=== PATIENT | male | born 1990 | race Caucasian/White ===

== ENCOUNTER 2017-07-27 22:47 | Emergency (ER) | payer BC ==
--- NOTE | 2017-07-27 22:51 | EDM.PDOC ---
ED HPI GENERAL MEDICAL PROBLEM - General Chief Complaint: ENT Problem Stated Complaint: tooth pain Time Seen by Provider: 07/27/17 22:51 Source of Information: Reports: Patient History Limitations: Reports: No Limitations - History of Present Illness INITIAL COMMENTS - FREE TEXT/NARRATIVE: 26-year-old male presents the ED with dental pain primarily left upper third he states he has about 6 really bad teeth. Multiple dental caries and fractured teeth or from bad decay for the last 6 years with intermittent dental infections. He states pain is currently on the left side and mostly involving his maxilla rating up into words his maxillary sinus. However he states that there is significant pain in the lower bicuspids as well which are badly deteriorated. This is his fourth day of severe pain. Has been taking Motrin and Tylenol without much relief. Has not slept for 2 days. States he is on a list to get into the dentist for the last 2 weeks but has been unable to get in. Onset: Gradual Onset Date: 07/24/17 Duration: Day(s): (4 days.) Location: Reports: Face (Dental pain involving left lower and upper) Quality: Reports: Ache ( teeth.), Pressure, Throbbing Severity: Severe Improves with: Reports: None Worsens with: Reports: None (Currently pain is 9 out of 10) Context: Reports: Other (Multiple teeth in very bad shape with decay and fracture.). 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 Can stand the pain any further. Motrin) Right Upper Throat Pain Score (Numeric/FACES): 10 - Related Data Allergies Allergy/AdvReac Type Severity Reaction Status Date / Time No Known Allergies Allergy Verified 07/27/17 22:56 Home Meds: Home Meds Amoxicillin/Clavulanate K [Augmentin 875-125 MG] 1 tab PO BID #20 tablet [Rx] oxyCODONE HCl/Acetaminophen [Percocet 5-325 mg Tablet] 1 - 2 each PO Q4H PRN # 20 tablet 07/27/17 [Rx] Past Medical History HEENT History: Reports: Other (See Below) (Dental pain and dental infections in the past) ED ROS ENT - Review of Systems Review Of Systems: See Below Constitutional: Reports: Fatigue, Decreased Appetite (Can hardly eat due to pain in his teeth.). Denies: Fever, Chills, Malaise, Weakness, Weight Loss ( From not sleeping) HEENT: Reports: Dental Pain (Severe pain primarily left upper canine and bicuspids as well as lower bicuspids and second molar.) Respiratory: Reports: No Symptoms Cardiovascular: Reports: No Symptoms Endocrine: Reports: No Symptoms GI/Abdominal: Reports: No Symptoms : Reports: No Symptoms Musculoskeletal: Reports: No Symptoms Skin: Reports: No Symptoms Neurological: Reports: No Symptoms Psychiatric: Reports: No Symptoms Hematologic/Lymphatic: Reports: No Symptoms Immunologic: Reports: No Symptoms ED EXAM, ENT - Physical Exam Exam: See Below Exam Limited By: No Limitations General Appearance: Alert, Moderate Distress (He is in significant discomfort.) Eye Exam: Bilateral Eye: Normal Inspection, PERRL Ears: Normal TMs Mouth/Throat: Dental Abcess (I believe most of his pain at present is coming from the left upper canine and first bicuspid tooth which are severely decayed and fractured. He has multiple teeth on the lower maxilla including the second molar that is badly decayed with like both bicuspids in bad shape as well. However there is no gingiva swelling in this area.) Head: No: Facial Swelling Neck: Normal Inspection, Supple, Non-Tender. No: Full Range of Motion, Lymphadenopathy (R) Respiratory/Chest: No Respiratory Distress, Lungs Clear, Normal Breath Sounds, No Accessory Muscle Use Cardiovascular: Normal Peripheral Pulses, Regular Rate, Rhythm, No Edema, No Gallop, No Murmur, No Rub GI/Abdominal: Normal Bowel Sounds, Soft, Non-Tender, No Organomegaly Extremities: Normal Inspection, Normal Range of Motion, Non-Tender, No Pedal Edema Course - Vital Signs Last Recorded V/S: Last Vital Signs Temp 36.9 C 07/27/17 22:53 Pulse 83 07/27/17 22:53 Resp 20 07/27/17 22:53 BP 182/107 H 07/27/17 22:53 Pulse Ox 98 07/27/17 22:53 - Orders/Labs/Meds Meds: Medications Discontinued Medications Generic Name Dose Route Start Last Admin Trade Name Freq PRN Reason Stop Dose Admin Amoxicillin/Clavulanate Potassium 1 tab 07/28/17 23:11 Augmentin 500 Mg\125 Mg PO 07/28/17 23:12 ONETIME ONE Amoxicillin/Clavulanate Potassium 1 tab 07/27/17 23:15 07/27/17 23:19 Augmentin 500 Mg\125 Mg PO 07/27/17 23:16 1 tab ONETIME ONE Administration Oxycodone/Acetaminophen 2 tab 07/27/17 23:11 07/27/17 23:19 Percocet 325-5 Mg PO 07/27/17 23:12 2 tab ONETIME ONE Administration - Radiology Interpretation Free Text/Narrative:: 26-year-old male presents to the ED with severe dental pain primarily coming from the left upper canine and first bicuspid tooth which are badly decayed. There is surrounding gingiva swelling but no obvious abscess that would benefit from drainage. Plan placed on Augmentin 500 mg by mouth to the ED now 2 Percocet tablets and Motrin 600 mg by mouth. He will fill his meds through the [facility] machine for Percocet 5/325 milligrams tabs 20 and Augmentin 875 mg twice a day for 10 days. Plan is to hopefully get into the dentist within the next week to have these teeth removed. They are no longer salvageable Departure - Departure Time of Disposition: 23:27 Disposition: Home, Self-Care 01 Condition: Fair Clinical Impression: Dental abscess - Discharge Information Prescriptions: Amoxicillin/Clavulanate K [Augmentin 875-125 MG] 1 tab PO BID #20 tablet oxyCODONE HCl/Acetaminophen [Percocet 5-325 mg Tablet] 1 - 2 each PO Q4H PRN # 20 tablet PRN Reason: pain relief. Instructions: Dental Abscess, [id number] Referrals: PCP,None [Primary Care Provider] - Forms: ED Department Discharge, ED Return to Work/School Form Additional Instructions: Evaluation the emergency room tonight in regards to severe dental pain which could be coming from multiple teeth. I suspect however that is coming from valley decayed upper bicuspid tooth. There are also several bad teeth in the left lower mandible do not show any active signs of infection. Treatment is continue Motrin 600 mg every 6 hours to relieve pain and inflammation or alternatively Aleve 2 tablets every 8 hours in a similar fashion. Percocet tabs 5/3/25 one or 2 every 4 hours as needed for pain relief. Antibiotic is to be Augmentin with initial dose provided through the ED tonight. The [facility] machine will dispense Augmentin 875 mg tablets with better to be taken twice daily for the next 10 days to clear up dental infection. As discussed the tooth needs to be removed as this would cure the problem. Follow-up with dentist when able.
[2017-07-27] MEDS ORDERED: Acetaminophen/oxyCODONE 325-5 MG Tab PO ONE (23:11)
[2017-07-27] MEDS ORDERED: Amoxicillin/Clavulanate K 500-125 MG Tab PO ONE (23:15)
[2017-07-28] MEDS ORDERED: Amoxicillin/Clavulanate K 500-125 MG Tab PO ONE (23:11)
== END 2017-07-27 23:35 | disposition home or self-care (01) ==
LOC: JD.ED 22:47
DX: K04.7 Periapical abscess without sinus (principal)
CPT/HCPCS: 99283; A9270

== ENCOUNTER 2019-05-27 13:54 | Emergency (ER) | payer BC ==
[2019-05-27] MEDS ORDERED: Dexamethasone 10 MG/ML SDV IM ONE (14:52)
--- NOTE | 2019-05-27 14:58 | EDM.PDOC ---
ED HPI GENERAL MEDICAL PROBLEM - General Chief Complaint: Respiratory Problem Stated Complaint: SOB POST TONSIL SURGERY Time Seen by Provider: 05/27/19 14:22 Source of Information: Reports: Patient, RN Notes Reviewed History Limitations: Reports: No Limitations - History of Present Illness INITIAL COMMENTS - FREE TEXT/NARRATIVE: Patient is a 28-year-old male who presents to the ED for the evaluation of shortness of breath s/p tonsillectomy this morning. Patient was in [place] this morning and had his tonsils removed by Dr. Dockery at around 8:30 AM. He states that the surgery went fine, but now he feels as if something is in the back of my throat, like when I talk louder or faster. He notes that this seems to be bothersome type feeling in the back of his throat, he is not really complaining of any pain or any shortness of breath, he appears to be having no respiratory difficulty at this time. He states that this just seems as if it is blocking his airway. Patient is still able to drink fluids, and he has been able to drink about 3 or 4 bottles of water since his surgery. He did call his surgeon see the back of his throat, that is hard for him to evaluate him over the phone. To make him aware of what was going on, but the surgeon states that since he cannot see his throat, that it would be hard for him to evaluate him over the phone. - Related Data Allergies Allergy/AdvReac Type Severity Reaction Status Date / Time No Known Allergies Allergy Verified 02/03/18 15:07 Home Meds: Home Meds Hydrocodone/Acetaminophen [Hydrocodon-Acetamin 7.5-325/15] 15 ml PO Q4HR PRN [History] Past Medical History - Past Health History Medical/Surgical History: Denies Medical/Surgical History HEENT History: Reports: Other (See Below) Other HEENT History: dental issues Social & Family History - Family History Family Medical History: Noncontributory - Caffeine Use Caffeine Use: Reports: Coffee, Tea - Recreational Drug Use Recreational Drug Use: No ED ROS GENERAL - Review of Systems Review Of Systems: See Below Constitutional: Denies: Fever, Chills HEENT: Reports: Throat Swelling (feels as if his uvula is swollen) Respiratory: Denies: Shortness of Breath, Wheezing, Cough Cardiovascular: Denies: Chest Pain GI/Abdominal: Denies: Diarrhea, Nausea, Vomiting ED EXAM, GENERAL - Physical Exam Exam: See Below Exam Limited By: No Limitations General Appearance: Alert, WD/WN, No Apparent Distress Throat/Mouth: Normal Inspection, Normal Lips, Normal Teeth, Normal Gums, No Airway Compromise, Other (grossly swollen uvula). No: Normal Oropharynx (pt has cautery mai in back of throat, the area is erythematous and slightly edematous, the pt's uvula is swollen about 1x it's normal size.), Perioral Cyanosis Head: Atraumatic, Normocephalic Neck: Normal Inspection, Supple, Non-Tender, Full Range of Motion Respiratory/Chest: No Respiratory Distress, Lungs Clear, Normal Breath Sounds, No Accessory Muscle Use, Chest Non-Tender Cardiovascular: Normal Peripheral Pulses, Regular Rate, Rhythm, No Murmur Extremities: Normal Inspection, Normal Capillary Refill Neurological: Alert, Oriented, Normal Cognition, No Motor/Sensory Deficits Psychiatric: Normal Affect, Normal Mood Skin Exam: Warm, Dry, Intact, Normal Color, No Rash Course - Vital Signs Last Recorded V/S: Last Vital Signs Temp 97.7 F 05/27/19 14:07 Pulse 76 05/27/19 14:07 Resp 18 05/27/19 14:07 BP 137/91 H 05/27/19 14:07 Pulse Ox 97 05/27/19 14:07 - Orders/Labs/Meds Meds: Medications Discontinued Medications Generic Name Dose Route Start Last Admin Trade Name Jazmine PRN Reason Stop Dose Admin Dexamethasone 10 mg 05/27/19 14:52 Dexamethasone IM 05/27/19 14:53 ONETIME ONE - Re-Assessments/Exams Free Text/Narrative Re-Assessment/Exam: 05/27/19 15:05 Patient is a 28-year-old male who presents to the ED for problems status post his tonsillectomy this morning. Patient's uvula is quite edematous, I would say it is small and at least 1-2 times is normal size, and I do believe this is what is causing him his sensation of not being able to talk fast or having something in the back of his throat. I will provide him with 10 mg of dexamethasone for inflammation management, have him try to chew on some ice chips to reduce swelling, and also have him use ice packs to his throat as well to see if this does not bring some swelling relief as well. Patient verbalized understanding, I also suggested that he sleep upright for the next day or 2 in the recliner. He also was understanding of this. Departure - Departure Time of Disposition: 15:07 Disposition: Home, Self-Care 01 Condition: Fair Clinical Impression: Uvular swelling - Discharge Information *PRESCRIPTION DRUG MONITORING PROGRAM REVIEWED*: No *COPY OF PRESCRIPTION DRUG MONITORING REPORT IN PATIENT DELFINO: No Referrals: Deana Tenorio MD [Primary Care Provider] - Forms: ED Department Discharge Additional Instructions: You were evaluated in the ER today regarding the feelings of something being swollen in the back your throat. Your uvula was swollen at today's visit, you were given a 10 mg injection of dexamethasone for inflammation relief, as you are not able to take ibuprofen at this time. Recommend you try to suck on some ice chips over the next few hours, and also use ice packs to your throat area to help relieve some of the swelling as well. Please try to follow all previous discharge instructions set forth by your ENT, and do not get behind on your pain medications please take them as prescribed. Recommend that you follow-up with your ENT if you develop any new or worsening symptoms, however we are glad to evaluate you in the ER at any time for worsening symptoms as well. Sepsis Event Note - Evaluation Sepsis Screening Result: No Definite Risk - Focused Exam Vital Signs: Vital Signs Temp Pulse Resp BP Pulse Ox 05/27/19 14:07 97.7 F 76 18 137/91 H 97 Date Exam was Performed: 05/27/19 Time Exam was Performed: 15:07
== END 2019-05-27 15:50 | disposition home or self-care (01) ==
LOC: JD.ED 13:54
DX: K13.79 Other lesions of oral mucosa (principal); Z90.89 Acquired absence of other organs
CPT/HCPCS: 96372; 99284; J1100

== ENCOUNTER 2019-06-01 12:43 | Emergency (ER) | payer BC ==
--- NOTE | 2019-06-01 14:00 | CR ---
Chest: Two views of the chest were obtained. Comparison: Previous chest x-ray of 02/03/18. Heart size and mediastinum are within normal limits. Lungs are clear with no acute parenchymal change. Bony structures appear within normal limits. Impression: 1. Nothing acute is appreciated on two-view chest x-ray. Diagnostic code #1 This report was dictated in [place] Standard Time
--- NOTE | 2019-06-01 14:40 | EDM.PDOC ---
ED HPI GENERAL MEDICAL PROBLEM - General Chief Complaint: Chest Pain Stated Complaint: CHEST PAIN/POST TONSILLECTOMY 05/27 Time Seen by Provider: 06/01/19 12:54 Source of Information: Reports: Patient History Limitations: Reports: No Limitations - History of Present Illness INITIAL COMMENTS - FREE TEXT/NARRATIVE: The patient presents with chest pain. This started just prior to arrival and it went away when he got here. He has some shortness of breath with it. He says this has been a problem for a few months but today was the worst one. He was not doing anything to strenuous when it started. He has no fever, chills, cough, congestion, abdominal pain, nausea or vomiting. He has seen his provider for this. He had a holter monitor and an EKG. Onset: Gradual Duration: Day(s): Location: Reports: Chest Quality: Reports: Sharp Severity: Moderate Improves with: Reports: None Worsens with: Reports: None Associated Symptoms: Reports: Chest Pain. Denies: Cough, Fever/Chills, Headaches, Nausea/Vomiting, Shortness of Breath - Related Data Allergies Allergy/AdvReac Type Severity Reaction Status Date / Time No Known Allergies Allergy Verified 06/01/19 12:53 Home Meds: Home Meds oxyCODONE 15 mg PO BID 06/01/19 [History] Past Medical History - Past Health History Medical/Surgical History: Denies Medical/Surgical History HEENT History: Reports: Other (See Below) Other HEENT History: dental issues Cardiovascular History: Reports: Angina, High Cholesterol - Past Surgical History HEENT Surgical History: Reports: Oral Surgery, Tonsillectomy Social & Family History - Family History Family Medical History: Noncontributory - Tobacco Use Smoking Status *Q: Never Smoker Second Hand Smoke Exposure: No - Caffeine Use Caffeine Use: Reports: Coffee - Recreational Drug Use Recreational Drug Use: No ED ROS GENERAL - Review of Systems Review Of Systems: See Below Constitutional: Reports: No Symptoms HEENT: Reports: No Symptoms Respiratory: Reports: Shortness of Breath Cardiovascular: Reports: Chest Pain Endocrine: Reports: No Symptoms GI/Abdominal: Reports: No Symptoms ED EXAM, GENERAL - Physical Exam Exam: See Below Exam Limited By: No Limitations General Appearance: Alert, No Apparent Distress Ears: Normal External Exam Nose: Normal Inspection Head: Atraumatic, Normocephalic Neck: Normal Inspection Respiratory/Chest: No Respiratory Distress, Lungs Clear, Normal Breath Sounds Cardiovascular: Regular Rate, Rhythm, No Edema, No Murmur GI/Abdominal: Soft, Non-Tender, No Organomegaly, No Mass Back Exam: Normal Inspection Extremities: Normal Inspection Neurological: Alert, Oriented, No Motor/Sensory Deficits EKG INTERPRETATION EKG Date: 06/01/19 Time: 13:06 Rhythm: NSR Rate (Beats/Min): 84 [place]: Normal P-Wave: Present QRS: Normal ST-T: Normal QT: Normal Course - Vital Signs Last Recorded V/S: Last Vital Signs Temp 98.7 F 06/01/19 12:50 Pulse 78 06/01/19 15:32 Resp 20 06/01/19 12:50 BP 140/73 06/01/19 15:32 Pulse Ox 100 06/01/19 15:32 - Orders/Labs/Meds Orders: Active Orders 24 hr Category Date Time Status Cardiac Monitoring [RC] . DIRECTED Care 06/01/19 13:30 Active EKG 12 Lead [EKG Documentation Completion] [RC] URGENT Care 06/01/19 13:02 Active Labs: Laboratory Tests 06/01/19 06/01/19 06/01/19 Range/Units 13:45 13:45 13:45 WBC 9.77 H (4.23-9.07) K/mm3 RBC 5.86 (4.63-6.08) M/mm3 Hgb 16.2 (13.7-17.5) gm/dl Hct 47.5 (40.1-51.0) % MCV 81.1 (79.0-92.2) fl MCH 27.6 (25.7-32.2) pg MCHC 34.1 (32.2-35.5) g/dl RDW Std Deviation 39.3 (35.1-43.9) fL Plt Count 418 H (163-337) K/mm3 MPV 9.4 (9.4-12.3) fl Neut % (Auto) 68.1 H (34.0-67.9) % Lymph % (Auto) 24.0 (21.8-53.1) % Wetzel % (Auto) 5.8 (5.3-12.2) % Eos % (Auto) 1.5 (0.8-7.0) Baso % (Auto) 0.3 (0.1-1.2) % Neut # (Auto) 6.65 H (1.78-5.38) K/mm3 Lymph # (Auto) 2.34 (1.32-3.57) K/mm3 [place]zel # (Auto) 0.57 (0.30-0.82) K/mm3 Eos # (Auto) 0.15 (0.04-0.54) K/mm3 Baso # (Auto) 0.03 (0.01-0.08) K/mm3 D-Dimer, Quantitative 0.30 (0.19-0.50) mg/L Sodium 137 (136-145) mEq/L Potassium 4.1 (3.5-5.1) mEq/L Chloride 99 (98-107) mEq/L Carbon Dioxide 29 (21-32) mEq/L Anion Gap 13.1 (5-15) BUN 8 (7-18) mg/dL Creatinine 0.9 (0.7-1.3) mg/dL Est Cr Clr Drug Dosing 122.20 mL/min Estimated GFR (MDRD) > 60 (>60) mL/min BUN/Creatinine Ratio 8.9 L (14-18) Glucose 101 (74-106) mg/dL Calcium 9.5 (8.5-10.1) mg/dL Total Bilirubin 0.5 (0.2-1.0) mg/dL AST 42 H (15-37) U/L ALT 119 H (16-63) U/L Alkaline Phosphatase 98 (46-116) U/L Troponin I < 0.017 (0.00-0.056) ng/mL Total Protein 8.7 H (6.4-8.2) g/dl Albumin 4.1 (3.4-5.0) g/dl Globulin 4.6 gm/dL Albumin/Globulin Ratio 0.9 L (1-2) - Re-Assessments/Exams Free Text/Narrative Re-Assessment/Exam: 06/01/19 14:41 I ordered an EKG, CXR and labs. His WBC was 9.77. His AST was elevated at 42. His ALT was 119. His troponin is negative. His D-dimer was negative. I am not sure what is causing his pain. He does have to give a stool sample to his provider. She is checking for H-pylori. He will need to follow up with his doctor. Departure - Departure Time of Disposition: 14:50 Disposition: Home, Self-Care 01 Condition: Good Clinical Impression: Atypical chest pain Instructions: Nonspecific Chest Pain, [id number] Referrals: Deana Tenorio MD [Primary Care Provider] - 1 Week Forms: ED Department Discharge Additional Instructions: Take tylenol or motrin for pain. Follow up with your doctor. Please return if you are worse. Sepsis Event Note - Evaluation Sepsis Screening Result: No Definite Risk - Focused Exam Vital Signs: Vital Signs Temp Pulse Resp BP Pulse Ox 06/01/19 15:32 78 140/73 100 06/01/19 12:50 98.7 F 92 20 136/89 97 Date Exam was Performed: 06/01/19 Time Exam was Performed: 16:14 - My Orders Last 24 Hours: My Active Orders 06/01/19 13:02 EKG 12 Lead [EKG Documentation Completion] [RC] URGENT 06/01/19 13:30 Cardiac Monitoring [RC] . DIRECTED - Assessment/Plan Last 24 Hours: My Active Orders 06/01/19 13:02 EKG 12 Lead [EKG Documentation Completion] [RC] URGENT 06/01/19 13:30 Cardiac Monitoring [RC] . DIRECTED
== END 2019-06-01 15:33 | disposition home or self-care (01) ==
LOC: JD.ED 12:43
DX: R07.89 Other chest pain (principal)
CPT/HCPCS: 36415; 71046; 71046-26; 80053; 84484; 85025; 85379; 93005; 93010; 99283; 99285-25

== ENCOUNTER 2019-06-09 01:11 | Emergency (ER) | payer BC ==
--- NOTE | 2019-06-09 01:36 | EDM.PDOC ---
ED HPI GENERAL MEDICAL PROBLEM - General Chief Complaint: ENT Problem Stated Complaint: BLEEDING IN THROAT Time Seen by Provider: 06/09/19 01:22 Source of Information: Reports: Patient, Family History Limitations: Reports: No Limitations - History of Present Illness INITIAL COMMENTS - FREE TEXT/NARRATIVE: 28-year-old male presents to the ED with aggressive bleeding per ora. History suggests that he had a tonsillectomy 11 days ago. He woke up from sleep feeling like he had heartburn and then recognized that with water intake it tasted like blood. Producing a fair amount of blood per ora that he was spitting up. He awoke from sleep around 00 30 hours tonight. Feeling much better over the last 36 hours. He did have some minor bleeding after the surgery I believe . She tried ice water at home but he could not get the bleeding to stop. At the time of my examination bleeding appears to have come under control. Onset: Today Onset Date: 06/09/19 Onset Time: 00:30 Duration: Minutes: Location: Reports: Other (Bleeding per ora from left tonsillar fossa) Quality: Reports: Other Severity: Moderate (Active bleeding) Improves with: Reports: None Worsens with: Reports: None Context: Reports: Other (Patient had tonsillectomy 11 days ago. Awoke with spontaneous bleeding.). Denies: Activity, Exercise, Lifting, Sick Contact, Trauma Associated Symptoms: Reports: No Other Symptoms Treatments [employer]: Reports: Other (see below) (None.) - Related Data Allergies Allergy/AdvReac Type Severity Reaction Status Date / Time No Known Allergies Allergy Verified 06/09/19 01:25 Home Meds: Home Meds . [No Known Home Meds] 06/09/19 [History] Past Medical History - Past Health History Medical/Surgical History: Denies Medical/Surgical History HEENT History: Reports: Other (See Below) Other HEENT History: dental issues Cardiovascular History: Reports: Angina, High Cholesterol - Past Surgical History HEENT Surgical History: Reports: Oral Surgery, Tonsillectomy Social & Family History - Family History Family Medical History: Noncontributory - Caffeine Use Caffeine Use: Reports: Coffee - Living Situation & Occupation Living situation: Reports: Occupation: Employed ED ROS ENT - Review of Systems Review Of Systems: See Below Constitutional: Reports: Malaise, Fatigue, Decreased Appetite (Only getting better.). Denies: Fever, Chills HEENT: Reports: Other. Denies: Ear Pain Respiratory: Reports: No Symptoms (Blood per ora from left tonsillar fossa wearing a tonsillectomy carried out 11 days ago) Cardiovascular: Reports: No Symptoms Endocrine: Reports: No Symptoms GI/Abdominal: Reports: No Symptoms : Reports: No Symptoms Musculoskeletal: Reports: No Symptoms Skin: Reports: No Symptoms Neurological: Reports: No Symptoms Psychiatric: Reports: No Symptoms Hematologic/Lymphatic: Reports: No Symptoms Immunologic: Reports: No Symptoms ED EXAM, ENT - Physical Exam Exam: See Below Exam Limited By: Uncooperative General Appearance: WD/WN, Anxious, Mild Distress (Mildly anxious) Eye Exam: Bilateral Eye: Normal Inspection, PERRL Mouth/Throat: Other (The right tonsillar fossa is normal and is healing well. There is a large clot in the left tonsillar fossa with no active bleeding at this time.) Head: Atraumatic, Normocephalic Neck: Normal Inspection, Supple, Non-Tender, Full Range of Motion. No: Lymphadenopathy (L), Lymphadenopathy (R) Respiratory/Chest: No Respiratory Distress, Lungs Clear (No evidence of aspiration.), Normal Breath Sounds, No Accessory Muscle Use Cardiovascular: Normal Peripheral Pulses, Regular Rate, Rhythm, No Edema, No Murmur, No Rub, Other (Her pressure is mildly elevated at 127/98.) Neurological: Alert, Oriented, CN II-XII Intact, Normal Cognition, Normal Gait Psychiatric: Normal Affect, Anxious Skin: Warm (Mildly anxious.), Dry, Intact, Normal Color, No Rash ED PROCEDURAL SEDATION - Pre Procedure Indications: other (Post tonsillectomy hemorrhage) Preparations: procedure explained, consent signed, RT in room, oxygen, continuous pulse oximeter, suction, continuous telemetry monitor, constant attendance - Physical Exam Airway: normal anatomy Cardiovascular: normal heart sounds Respiratory: normal breath sounds Neurological: alert, responsive, NAD Meilampati Classification: 2 (Tonsillar pillars and uvula hidden by base of tongue) - Procedure Sedation Sedation: versed (parenteral) (4 mg), fentanyl (50 g) ASA Classification: 1 (Normal healthy patient) - Intra Procedure Condition during procedure: moderately sedated, handled secretions adequately, other (Required oxygen support by nasal prongs) Complications: none Reversal: none - Post Procedure Condition after procedure: alert, NAD, responds to verbal stimuli - Discharge Condition Patient returned to pre-procedure baseline: Yes Alert prior to discharge: Yes Ambulatory with assistance: Yes Vital signs normal: Yes Time spent with sedated patient: 30 min Course - Vital Signs Last Recorded V/S: Last Vital Signs Temp 36.7 C 06/09/19 01:19 Pulse 85 06/09/19 01:19 Resp 19 06/09/19 01:19 BP 127/98 H 06/09/19 01:19 Pulse Ox 96 06/09/19 01:19 - Orders/Labs/Meds Orders: Active Orders 24 hr Category Date Time Status Sodium Chloride 0.9% [Normal Saline] 1,000 ml Med 06/09/19 02:30 Active IV ASDIRECTED Medication Orders Sodium Chloride (Normal Saline) 1,000 mls @ 125 mls/hr IV ASDIRECTED YOGESH Last Admin: 06/09/19 02:47 Dose: 125 mls/hr Labs: Laboratory Tests 06/09/19 06/09/19 Range/Units 02:20 02:20 Hgb 15.2 (13.7-17.5) gm/dl Hct 44.2 (40.1-51.0) % PT 10.8 (9.7-12.0) SECONDS INR 0.99 APTT 28 (22-31) SECONDS Meds: Medications Generic Name Dose Route Start Last Admin Trade Name Freq PRN Reason Stop Dose Admin Sodium Chloride 1,000 mls @ 125 mls/hr 06/09/19 02:30 06/09/19 02:47 Normal Saline IV 125 mls/hr ASDIRECTED YOGESH Administration Discontinued Medications Generic Name Dose Route Start Last Admin Trade Name Freq PRN Reason Stop Dose Admin Fentanyl 100 mcg 06/09/19 02:23 06/09/19 02:55 Sublimaze IVPUSH 06/09/19 02:24 50 mcg ONETIME ONE Administration Hydromorphone HCl 1 mg 06/09/19 02:23 06/09/19 02:44 Dilaudid IVPUSH 06/09/19 02:24 1 mg ONETIME ONE Administration Tranexamic Acid 1,000 mg/ 110 mls @ 400 mls/hr 06/09/19 02:15 Sodium Chloride IV ONETIME YOGESH Metoclopramide HCl 10 mg 06/09/19 02:23 06/09/19 02:41 Reglan IVPUSH 06/09/19 02:24 10 mg ONETIME ONE Administration Midazolam HCl 8 mg 06/09/19 02:23 06/09/19 02:58 Versed 1 Mg/Ml IVPUSH 06/09/19 02:24 Not Given ONETIME ONE Midazolam HCl 8 mg 06/09/19 02:50 06/09/19 02:57 Versed 1 Mg/Ml IVPUSH 06/09/19 02:51 Not Given ONETIME ONE Midazolam HCl Confirm 06/09/19 02:52 06/09/19 02:57 Versed 1 Mg/Ml Administered 06/09/19 02:53 Not Given Dose 8 mg .ROUTE .STK-MED ONE Midazolam HCl 2 mg 06/09/19 02:55 06/09/19 02:56 Versed 1 Mg/Ml IVPUSH 06/09/19 02:56 2 mg ONETIME ONE Administration Thrombin 5,000 unit 06/09/19 02:12 06/09/19 03:25 Thrombin-Jmi TOP 06/09/19 02:13 5,000 unit ONETIME ONE Administration Tranexamic Acid 1,000 mg 06/09/19 03:00 06/09/19 03:01 Cyklokapron .XX 06/09/19 03:01 1,000 mg ONETIME ONE Administration - Radiology Interpretation Free Text/Narrative:: 28-year-old male presents to the ED awakening from sleep about 00 30 hours with bright red blood per ora. Patient is now day 11 post tonsillectomy. Patient reveals a large clot in the left tonsillar fossa with no active bleeding at present. The right side is dry and is healing well. Suspect loss of his subsalicylate patch on the left side to have helped precipitate a post tonsillectomy bleed. There is no active bleeding I will adopt a wait and see approach. - Re-Assessments/Exams Free Text/Narrative Re-Assessment/Exam: 06/09/19 03:33 initial attempts an hour ago to bring the bleeding under control with Surgicel soaked with Tranexemic acid due to the pronounced gag reflex of the patient leaving holding the weighted laryngoscope on his own tongue. Further attempts to visualize the source of bleeding from the left tonsillar fossa under conscious sedation using Versed and fentanyl also failed in terms that the bleeding is aggressive and coming from the very superior surface of the tonsillar fossa. He did attempt to place further Surgicel soaked with both transiently make acid and bovine thrombin into the tonsillar fossa and I was able to bring the bleeding somewhat under control but it is still actively losing. Fortunately there is no one here in the surgical field that could provide cauterization under general anesthetic. I will therefore discuss case with supervisor wire rope fabrication ENT at [facility] in [place] with the patient had surgery performed. 06/09/19 04:00 Roads are to0 treacherous to travel at this time. Embolus will not go until at least daylight when the sand trucks of note. It is spill still spitting up small quantities of bright red blood but much less than an hour ago. With ENT DR Langston any suggest a trial of silver nitrate topically to see if I can bring it under control. He should develop hiccups and therefore treatment was delayed TO cauterize area with silver nitrate was tolerated very well in bleeding did seem to be coming under control. I will re-examine him in 5 -10 minutes. 06/09/19 04:13 minimal bleeding appreciated still from the superior aspect of the left tonsillar fossa. We cauterized with silver nitrate 3. 06/09/19 04:28: No further bleeding is evident at this time. There is a clot formation in the left peritonsillar fossa. Further cautery carried out at this time. Will observe. 06/09/19 04:45 I had the patient gargle with water and were able to remove good portion of the blood on the soft palate and posterior oropharynx. Appears to be a area of fresh bleeding anterior to where have been cauterizing I cauterized this area 2 with silver nitrate. Will review in 15 minutes. 06/09/19 04:59 Dr Langston called back from [facility] and at this time I believe the patient will not require transport to [facility]. 06/09/19 05:16: Labs revealed a normal hemoglobin of 15.2 and hematocrit of 44.2. PT was 10.8 with an INR of 0.99. PTT was 28 on normal. Departure - Departure Time of Disposition: 05:16 Disposition: Home, Self-Care 01 Condition: Fair Clinical Impression: Post tonsillectomy secondary hemorrhage - Discharge Information *PRESCRIPTION DRUG MONITORING PROGRAM REVIEWED*: Not Applicable *COPY OF PRESCRIPTION DRUG MONITORING REPORT IN PATIENT DELFINO: Not Applicable Referrals: Deana Tenorio MD [Primary Care Provider] - Forms: ED Department Discharge, ED Return to Work/School Form Additional Instructions: Evaluation the emergency room early this morning secondary to awakening from sleep with blood coming out of her mouth. This proved to be coming from the left tonsillar fossa where you had recently had her tonsils removed 11 days ago. The bleeding was coming from the superior aspect of the tonsillar fossa and was very difficult to identify Destiney a clot had formed and there was no active bleeding and swelling of his left alone. However within the hour the clot had enlarged minute produced nausea and vomiting and brisk bleeding. You therefore an initial attempt to place a declotting medication on the area with cough material that helps clotting to occur. However getting her active gag reflex this would not stay in place. He therefore received conscious sedation with Versed and fentanyl and I attempted further to place transiently make acid and bovine thrombin on the area 10 and the bleeding under control and did receive approximate 75% control the bleeding. I was going to send her to [place] for further treatment in the operating room part of the roads are extremely bad this morning due to ice and snow-covered conditions. Therefore further attempts at cauterization with silver nitrate proved to be successful in bringing the bleeding under complete control over an hour. You're therefore discharged home to return to the ED if you have any further bleeding. Turned back to a soft diet for the next 48 hours. Off work for the remainder of today but may return tomorrow if you are feeling up to it. Sepsis Event Note - Evaluation Sepsis Screening Result: No Definite Risk - Focused Exam Vital Signs: Vital Signs Temp Pulse Resp BP Pulse Ox 06/09/19 01:19 36.7 C 85 19 127/98 H 96 Date Exam was Performed: 06/09/19 Time Exam was Performed: 05:21 - My Orders Last 24 Hours: My Active Orders 06/09/19 02:30 Sodium Chloride 0.9% [Normal Saline] 1,000 ml IV ASDIRECTED - Assessment/Plan Last 24 Hours: My Active Orders 06/09/19 02:30 Sodium Chloride 0.9% [Normal Saline] 1,000 ml IV ASDIRECTED
[2019-06-09] MEDS ORDERED: Thrombin (Bovine) 5,000 Unit Kit TOP ONE (02:12)
[2019-06-09] MEDS ORDERED: Tranexamic Acid 1,000 MG in Sodium Chloride 0.9% 100 ML IV SCH (02:15)
[2019-06-09] MEDS ORDERED: Midazolam 1 MG/ML 5 ML SDV IVPUSH ONE ×2 (02:23→02:50)
[2019-06-09] MEDS ORDERED: fentaNYL 100 MCG/2 ML SDV IVPUSH ONE (02:23)
[2019-06-09] MEDS ORDERED: Metoclopramide 10 MG/2 ML SDV IVPUSH ONE (02:23)
[2019-06-09] MEDS ORDERED: HYDROmorphone 1 MG/ML Syringe IVPUSH ONE (02:23)
[2019-06-09] MEDS ORDERED: Sodium Chloride 0.9% 1,000 ML IV SCH (02:30)
[2019-06-09] MEDS ORDERED: Midazolam 1 MG/ML 2 ML SDV ONE (02:52)
[2019-06-09] MEDS ORDERED: Midazolam 1 MG/ML 2 ML SDV IVPUSH ONE (02:55)
== END 2019-06-09 05:30 | disposition home or self-care (01) ==
LOC: JD.ED 01:11
DX: J95.830 Postprocedural hemorrhage of a respiratory system organ or structure following a respiratory system procedure (principal); Y83.8 Other surgical procedures as the cause of abnormal reaction of the patient, or of later complication, without mention of misadventure at the time of the procedure
CPT/HCPCS: 36415; 85014; 85018; 85610; 85730; 96361; 96374; 96375; 99152; 99153; 99283; J1170; J2250; J2765; J3010; J7030; 42960

== ENCOUNTER 2021-08-26 18:28 | Emergency (ER) | payer BC ==
[2021-08-26] MEDS ORDERED: HYDROmorphone 1 MG/ML Syringe IVPUSH ONE ×2 (18:38→21:04)
[2021-08-26] MEDS ORDERED: Propofol 200 MG/20 ML SDV ONE ×2 (19:24→21:00)
[2021-08-26] MEDS ORDERED: HYDROmorphone 1 MG/ML Syringe ONE (21:06)
== END 2021-08-26 22:47 | disposition home or self-care (01) ==
LOC: JD.ED 18:28
DX: S82.432A Displaced oblique fracture of shaft of left fibula, initial encounter for closed fracture (principal); S82.392A Other fracture of lower end of left tibia, initial encounter for closed fracture; S93.05XA Dislocation of left ankle joint, initial encounter; S93.422A Sprain of deltoid ligament of left ankle, initial encounter; E78.00 Pure hypercholesterolemia, unspecified; X50.1XXA Overexertion from prolonged static or awkward postures, initial encounter
CPT/HCPCS: 27788; 73590; 73600; 73610; 73700; 96374; 96376; 99152; 99284; J1170; J2704

== ENCOUNTER 2021-09-03 09:45 | Day surgery (SDC) | payer BC ==
[~2021-09-03 09:45] MED LIST: Lactated Ringers 1,000 ML IV SCH; Lidocaine 1%/Sod Bicarbonate in NS 8.4% 1 ML Syringe IDERM PRN; Sodium Chloride 0.9% 10 ML Syringe FLUSH PRN; Sodium Chloride 0.9% 10 ML Syringe FLUSH SCH
[2021-09-03] MEDS ORDERED: ceFAZolin 1 GM Vial ONE (10:35)
[2021-09-03] MEDS ORDERED: Lidocaine 1% 4 ML ONE (10:35)
[2021-09-03] MEDS ORDERED: Propofol 200 MG/20 ML SDV ONE ×2 (10:35→12:14)
[2021-09-03] MEDS ORDERED: fentaNYL 100 MCG/2 ML SDV ONE ×3 (10:36→12:44)
[2021-09-03] MEDS ORDERED: Midazolam 1 MG/ML 2 ML SDV ONE (10:36)
[2021-09-03] MEDS ORDERED: Bupivacaine 0.25% 10 ML SDV ONE ×2 (11:21)
[2021-09-03] MEDS ORDERED: Ondansetron 4 MG/2 ML SDV ONE (12:51)
[2021-09-03] MEDS ORDERED: Ketorolac 30 MG/ML SDV ONE (12:51)
[2021-09-03] MEDS ORDERED: HYDROmorphone 0.5 MG/0.5 ML Syringe IVPUSH PRN (12:53)
[2021-09-03] MEDS ORDERED: diphenhydrAMINE 50 MG/ML SDV IVPUSH PRN (12:53)
[2021-09-03] MEDS ORDERED: Ondansetron 4 MG/2 ML SDV IVPUSH PRN (12:53)
[2021-09-03] MEDS: fentaNYL 100 MCG/2 ML SDV IVPUSH PRN ×2 (13:34→13:44)
[2021-09-03] MEDS ORDERED: HYDROmorphone 1 MG/ML Syringe IVPUSH ONE (14:00)
[2021-09-03] MEDS ORDERED: traMADol 50 MG Tab PO ONE (14:30)
[2021-09-03] MEDS ORDERED: Ketorolac 30 MG/ML SDV IVPUSH SCH (19:00)
== END 2021-09-03 15:30 | disposition home or self-care (01) ==
LOC: JD.SDS 09:45
PROVIDERS: ATTEND Orthopaedic Surgery
DX: S93.432A Sprain of tibiofibular ligament of left ankle, initial encounter (principal); S82.842A Displaced bimalleolar fracture of left lower leg, initial encounter for closed fracture; E78.00 Pure hypercholesterolemia, unspecified; Z79.82 Long term (current) use of aspirin; Z79.899 Other long term (current) drug therapy; W19.XXXA Unspecified fall, initial encounter
CPT/HCPCS: 27814; 27829; 76000; A9270; C1713; J0690; J1170; J1885; J2250; J2405; J2704; J3010; J3490; J7120; 01480

== ENCOUNTER 2021-09-22 19:02 | Emergency (ER) | payer BC | END 2021-09-22 21:10 | disposition home or self-care (01) | LOC: JD.ED 19:02 | DX: S82.52XA Displaced fracture of medial malleolus of left tibia, initial encounter for closed fracture (principal); S82.832A Other fracture of upper and lower end of left fibula, initial encounter for closed fracture; Z86.16 Personal history of COVID-19; W18.40XA Slipping, tripping and stumbling without falling, unspecified, initial encounter; Y92.59 Other trade areas as the place of occurrence of the external cause | CPT/HCPCS: 73610-26-LT; 73610-LT; 99283 ==

== ENCOUNTER 2022-06-12 18:06 | Emergency (ER) | payer BC, OTHER ==
[2022-06-12] MEDS ORDERED: Albuterol 6.7 GM Inhaler INH ONE (20:42)
== END 2022-06-12 21:05 | disposition home or self-care (01) ==
LOC: JD.ED 18:06
DX: R07.89 Other chest pain (principal); R06.02 Shortness of breath; E78.00 Pure hypercholesterolemia, unspecified; Z20.822 Contact with and (suspected) exposure to COVID-19; Z79.82 Long term (current) use of aspirin
CPT/HCPCS: 36415; 71046; 71046-26; 80053; 83880; 84484; 85025; 93005; 93010; 99284; 99285; A9270-GY

== ENCOUNTER 2022-08-30 13:38 | Emergency (ER) | payer BC ==
[2022-08-30 14:27] LABS: BASOPHILS ABSOLUTE AUTO 0.04 K/mm3 (0.01-0.08); BASOPHILS PERCENT AUTO 0.5 % (0.1-1.2); EOSINOPHILS ABSOLUTE AUTO 0.21 K/mm3 (0.04-0.54); EOSINOPHILS PERCENT AUTO 2.6 (0.8-7.0); HEMATOCRIT 47.7 % (40.1-51.0); HEMOGLOBIN 16.2 gm/dl (13.7-17.5); IMMATURE GRAN ABSOLUTE AUTO 0.02 K/mm3 (0.00-0.10); IMMATURE GRAN PERCENT AUTO 0.2 % (<=1.0); LYMPHOCYTES ABSOLUTE AUTO 2.52 K/mm3 (1.32-3.57); LYMPHOCYTES PERCENT AUTO 30.9 % (21.8-53.1); MEAN CORPUSCULAR HEMOGLOBIN 27.9 pg (25.7-32.2); MEAN CORPUSCULAR VOLUME 82.1 fl (79.0-92.2); MEAN PLATELET VOLUME 9.6 fl (9.4-12.3); MONOCYTES ABSOLUTE AUTO 0.51 K/mm3 (0.30-0.82); MONOCYTES PERCENT AUTO 6.3 % (5.3-12.2); NEUTROPHILS ABSOLUTE AUTO 4.85 K/mm3 (1.78-5.38); NEUTROPHILS PERCENT AUTO 59.5 % (34.0-67.9); PLATELET COUNT,PLT 419 K/mm3 (163-337); RED BLOOD CELL COUNT 5.81 M/mm3 (4.63-6.08); WHITE BLOOD CELL COUNT,WBC 8.15 K/mm3 (4.23-9.07)
[2022-08-30 15:18] LABS: ALANINE AMINOTRANSFERASE,ALT 58 U/L (16-63); ALBUMIN 4.1 g/dl (3.4-5.0); ALKALINE PHOSPHATASE 86 U/L (46-116); ANION GAP 12.7 (5-15); ASPARTATE AMNIOTRANSFERASE,AST 28 U/L (15-37); BILIRUBIN TOTAL 0.3 mg/dL (0.2-1.0); BLOOD UREA NITROGEN,BUN 12 mg/dL (7-18); BUN/CREATININE RATIO 13.3 (14-18); C-REACTIVE PROTEIN <0.2 mg/dL (<1.0); CALCIUM 9.1 mg/dL (8.5-10.1); CARBON DIOXIDE,CO2 27 mEq/L (21-32); CHLORIDE,CL 103 mEq/L (98-107); CREATININE 0.9 mg/dL (0.7-1.3); EST CRCL DRUG DOSING (CG) 117.83 mL/min; ESTIMATED GFR 116 mL/min (>60); GLUCOSE RANDOM 84 mg/dL (70-99); MAGNESIUM 1.9 mg/dL (1.8-2.4); POTASSIUM,K 3.7 mEq/L (3.5-5.1); PROTEIN TOTAL,TP 8.3 g/dl (6.4-8.2); SODIUM,NA 139 mEq/L (136-145); TSH 0.765 uIU/mL (0.358-3.74)
[2022-08-30 15:21] LABS: TROPONIN I HIGH SENSITIVITY < 4 pg/mL (<=76)
== END 2022-08-30 16:39 | disposition home or self-care (01) ==
LOC: JD.ED 13:38
DX: R55 Syncope and collapse (principal); Z86.16 Personal history of COVID-19; Z79.82 Long term (current) use of aspirin
CPT/HCPCS: 36415; 80053; 83735; 83880; 84443; 84484; 85025; 85379; 86140; 93005; 93010; 93246; 99283; 99284